=== PATIENT | female | born 1995 ===

== ENCOUNTER 2020-11-09 02:10 | Inpatient (IN) | payer OTHER ==
[2020-11-09] MEDS ORDERED: Acetaminophen 325 MG TAB PO PRN (02:51)
[2020-11-09] MEDS ORDERED: Calcium Carbonate 500 MG ChewTAB PO PRN (02:51)
[2020-11-09] MEDS ORDERED: Ondansetron ODT 4 MG TAB PO PRN (02:51)
[2020-11-09] MEDS ORDERED: Ondansetron PF 4 MG/2 ML Vial IVP PRN (02:51)
[2020-11-09] MEDS ORDERED: Dextrose 5% in Water 1,000 ML IV PRN (02:59)
[2020-11-09] MEDS ORDERED: HumaLOG 300 UNITS/3 ML VIAL SC PRN ×2 (02:59)
[2020-11-09] MEDS ORDERED: Dextrose 50% Abboject 50 ML SYRINGE SLOW IVP PRN (02:59)
[2020-11-09] MEDS ORDERED: Vancomycin HCl 1.25 GM in Sodium Chloride 0.9% 250 ML 250 ML IVPB SCH (04:15)
[2020-11-09 04:29] VITALS: BMI 32.3
[2020-11-09] MEDS ORDERED: Magnesium 2 GM/50 ML 2 GM in Premix Bag 1 BAG IVPB SCH (05:00)
[2020-11-09 05:06] LABS: #Lymphocytes 0.9 thou/uL (1.20-3.40); #Monocytes 0.2 thou/uL (0.11-0.59); #Neutrophils 7.3 thou/uL (1.40-6.50); %Basophils 0.2 % (0.0-1.0); %Eosinophils 0.3 % (0.0-10.0); %Lymphocytes 10.7 % (21.0-51.0); %Neutrophils 86.8 % (42.0-75.0); Hemoglobin 11.7 g/dL (12.0-16.0); Mean Corpuscular HGB CONC 33.3 g/dL (32.0-36.0); Mean Corpuscular Hemoglobin 31.2 pg (27.0-31.0); Mean Corpuscular Volume 93.6 fL (78.0-98.0); Mean Platelet Volume 6.1 fL (7.4-10.4); Platelet Count 237 thou/uL (130-400); RBC Distribution Width 11.5 % (11.5-14.5); Red Blood Cell (RBC) Count 3.74 mill/uL (4.20-5.40); White Blood Cell (WBC) Count 8.4 thou/uL (4.8-10.8)
[2020-11-09] MEDS: Lactated Ringer's 1,000 ML IV SCH ×3 (05:13→18:07)
[2020-11-09 05:17] LABS: Bacteria/HPF None Seen HPF (None Seen); Bilirubin Negative (Negative); Blood, Urine 3+ (Negative); Clarity Extra Turbid (Clear); Glucose, Urine (Dipstick) Normal (Negative); Ketone, Urine 10 mg/dL (Negative); Leukocyte 500 Leu/uL (Negative); Nitrite Negative (Negative); Protein, Urine (Dipstick) 10 mg/dL (Neg-Trace); RBC/HPF Greater than 50 HPF (0-3); Specific Gravity, Urine 1.014 (1.002-1.036); Squamous Epithelial 0-3 HPF (0-3); Urobilinogen Normal mg/dL (Less than 2); WBC/HPF Greater than 50 HPF (0-3)
[2020-11-09 05:19] LABS: Urine Culture Reflex Yes Yes
[2020-11-09 05:32] LABS: ALT (SGPT) 94 U/L (8-55); AST (SGOT) 106 U/L (5-34); Albumin 3.5 g/dL (3.5-5.0); Alkaline Phosphatase 72 U/L (40-110); Anion Gap 12 mmol/L (10-20); BUN (Urea Nitrogen) 14 mg/dL (7.0-18.7); Bilirubin, Total 1.5 mg/dL (0.2-1.2); Calc. Creatinine Clearance 129 mL/min (70-130); Calcium 7.5 mg/dL (7.8-10.44); Carbon Dioxide 21 mmol/L (22-29); Chloride 112 mmol/L (98-107); Globulin 2.5 g/dL (2.4-3.5); Glucose 124 mg/dL (70-105); Lipase 13 U/L (8-78); Potassium 3.5 mmol/L (3.5-5.1); Sodium 141 mmol/L (136-145)
[2020-11-09] MEDS ORDERED: Cefepime 2 GM in Sodium Chloride 0.9% 100 ML IVPB SCH (06:00)
[2020-11-09] MEDS ORDERED: VANCOMYCIN 1.25 GM/250 ML BAG 1.25 GM in Premix Bag 1 BAG IVPB SCH (08:00)
[2020-11-09] MEDS ORDERED: Allopurinol 100 MG TAB PO SCH (09:00)
[2020-11-09] MEDS ORDERED: Enoxaparin Sodium 40 MG/0.4 ML SYRINGE SC SCH (09:00)
[2020-11-09] MEDS: Multivit, Therapeutic 1 TAB PO SCH (09:02)
[2020-11-09 09:44] LABS: Acetaminophen Less than 6.0 mcg/mL (10.0-30.0)
[2020-11-09] MEDS: cefTRIAXone\\ROCEPHIN 1 GM in Sodium Chloride 0.9% 100 ML IVPB SCH (10:30)
[2020-11-09] MEDS ORDERED: Iopamidol-370 76% 500 ML 1 ML ONE (11:15)
[2020-11-09] MEDS: Azithromycin 500 MG in Sodium Chloride 0.9% 250 ML 250 ML IVPB SCH (11:31)
[2020-11-09 12:13] LABS: Syphilis Antibody Nonreactive (Nonreactive); Syphilis Antibody Index 0.05 S/CO (<1.00 Non-Reactive)
[2020-11-09] MEDS: Ibuprofen 600 MG TAB PO PRN (12:30)
[2020-11-09 12:31] LABS: HBCM Index 0.08 S/CO (0-0.79); HBSAg Index 0.22 S/CO (0-0.99); HIV (1/2) Antibody/Antigen Non-Reactive (NonReactive); HIV 1/2 INDEX 0.16 S/CO (<1.00); Hep A IgM AB Non-Reactive (NonReactive); Hep A IgM S/CO 0.15 S/CO (0-0.79); Hep B Surf Ag Non-Reactive S/CO (NonReactive); Hep C IgG Ab Non-Reactive (NonReactive); Hepatitis B Core IgM Abs Non-Reactive (NonReactive)
[2020-11-09 14:54] LABS: Bacteria/HPF None Seen HPF (None Seen); Bilirubin Negative (Negative); Blood, Urine 2+ (Negative); Clarity Clear (Clear); Glucose, Urine (Dipstick) Normal (Negative); Ketone, Urine Negative (Negative); Leukocyte 25 Leu/uL (Negative); Nitrite Negative (Negative); Protein, Urine (Dipstick) Negative (Neg-Trace); RBC/HPF Greater than 50 HPF (0-3); Specific Gravity, Urine 1.011 (1.002-1.036); Squamous Epithelial 0-3 HPF (0-3); Urobilinogen Normal mg/dL (Less than 2); WBC/HPF 21-50 HPF (0-3)
[2020-11-09 14:57] LABS: Amphetamine Not Detected (NotDetected); Barbiturates Screen Not Detected (NotDetected); Benzodiazepine Screen Not Detected (NotDetected); Cocaine Metabolite Screen Not Detected (NotDetected); Medtox Reader # READER 4; Methadone Not Detected (NotDetected); Methamphetamine Not Detected (NotDetected); Opiate Screen Not Detected (NotDetected); Oxycodone Screen Not Detected (NotDetected); Phencyclidine (PCP) Not Detected (NotDetected); THC/Cannabinoid Screen Not Detected (NotDetected); Tricyclic Screen Not Detected (NotDetected)
[2020-11-09 14:58] LABS: Medtox Control Line Valid? VALID (VALID)
[2020-11-10] MEDS: Lactated Ringer's 1,000 ML IV SCH ×2 (01:28→06:39)
[2020-11-10 06:31] LABS: #Basophils 0.1 thou/uL (0.0-0.2); #Eosinphils 0.2 thou/uL (0.0-0.7); #Lymphocytes 1.6 thou/uL (1.20-3.40); #Monocytes 0.5 thou/uL (0.11-0.59); #Neutrophils 2.4 thou/uL (1.40-6.50); %Basophils 1.2 % (0.0-1.0); %Eosinophils 4.4 % (0.0-10.0); %Lymphocytes 34.1 % (21.0-51.0); %Monocytes 10.1 % (0.0-10.0); %Neutrophils 50.2 % (42.0-75.0); Hemoglobin 11.4 g/dL (12.0-16.0); Mean Corpuscular HGB CONC 33.8 g/dL (32.0-36.0); Mean Corpuscular Hemoglobin 32.3 pg (27.0-31.0); Mean Corpuscular Volume 95.7 fL (78.0-98.0); Mean Platelet Volume 6.6 fL (7.4-10.4); Platelet Count 202 thou/uL (130-400); RBC Distribution Width 11.6 % (11.5-14.5); Red Blood Cell (RBC) Count 3.52 mill/uL (4.20-5.40); White Blood Cell (WBC) Count 4.8 thou/uL (4.8-10.8)
[2020-11-10 06:51] LABS: ALT (SGPT) 123 U/L (8-55); AST (SGOT) 95 U/L (5-34); Albumin 3.4 g/dL (3.5-5.0); Alkaline Phosphatase 82 U/L (40-110); Anion Gap 12 mmol/L (10-20); BUN (Urea Nitrogen) 8 mg/dL (7.0-18.7); Bilirubin, Total 0.6 mg/dL (0.2-1.2); Calc. Creatinine Clearance 141 mL/min (70-130); Carbon Dioxide 18 mmol/L (22-29); Chloride 114 mmol/L (98-107); Globulin 2.4 g/dL (2.4-3.5); Glucose 98 mg/dL (70-105); Potassium 4.3 mmol/L (3.5-5.1); Protein, Total 5.8 g/dL (6.0-8.3); Sodium 140 mmol/L (136-145)
[2020-11-10] MEDS: Multivit, Therapeutic 1 TAB PO SCH (08:53)
[2020-11-10] MEDS: cefTRIAXone\\ROCEPHIN 1 GM in Sodium Chloride 0.9% 100 ML IVPB SCH (08:53)
[2020-11-10] MEDS: Ibuprofen 600 MG TAB PO PRN (08:57)
[2020-11-10] MEDS: Azithromycin 500 MG in Sodium Chloride 0.9% 250 ML 250 ML IVPB SCH (12:00)
[2020-11-10] MEDS ORDERED: Azithromycin 250 MG TAB PO SCH (12:15)
[2020-11-10 13:02] VITALS: BP 112/79; TEMP 97.8
== END 2020-11-10 14:44 | disposition home or self-care (01) | DRG 872 ==
LOC: T4-B 02:10 → UNDOADMIN 02:47
PROVIDERS: ADMIT Family Medicine; ATTEND Family Medicine
DX: A41.9 Sepsis, unspecified organism (principal); N39.0 Urinary tract infection, site not specified; F32.9 Major depressive disorder, single episode, unspecified; R73.03 Prediabetes; M10.9 Gout, unspecified; L40.9 Psoriasis, unspecified; R74.01 Elevation of levels of liver transaminase levels; E83.42 Hypomagnesemia; Z79.899 Other long term (current) drug therapy; R73.9 Hyperglycemia, unspecified
CPT/HCPCS: 36415; 36416; 71275; 76770; 80053; 80074; 80143; 80306; 81001; 82390; 82728; 83036; 83690; 83735; 84145; 84443; 85025; 85379; 86780; 87040; 87086; 87389; 87591; 80307; J0456; J0692; J0696; J1650; J3370; J3475; J3490; J7050; Q9967